=== PATIENT | female | born 1985 | race Caucasian/White ===

== ENCOUNTER 2018-03-25 16:01 | Inpatient (IN) ==
[2018-03-25] MEDS ORDERED: Naloxone 0.4 MG/ML INJ IVP PRN (16:12)
[2018-03-25] MEDS ORDERED: Famotidine 20 MG/2 ML VIAL IVP PRN (16:12)
[2018-03-25] MEDS ORDERED: Metoclopramide 10 MG/2 ML VIAL IVP PRN (16:12)
[2018-03-25] MEDS ORDERED: *HR* Nalbuphine 10 MG/ML AMPUL IVP PRN (16:12)
[2018-03-25] MEDS ORDERED: Penicillin G Potassium 5,000,000 UNIT in 0.9 % Sodium Chloride Mini Bag 100 ML IVPB ONE ×2 (16:12→16:20)
[2018-03-25] MEDS ORDERED: Ondansetron 4 MG/2 ML VIAL IVP PRN (16:12)
[2018-03-25] MEDS ORDERED: Ringers Solution, Lactated 1,000 ML IVC SCH (16:15)
--- NOTE | 2018-03-25 17:46 | OB/GYN History & Physical ---
Date of Encounter: 03/25/18 Time of Encounter: 17:43 Assessment and Plan (1) 39 weeks gestation of Current visit: Yes Status: Acute Admit for IOL GBS positive - PCN prophylaxis Patient may have nubain and or epidural upon request Pitocin per protocol Consider AROM after second dose of PCN Anticipate vaginal delivery POC per consult with Dr Andrews History of Present Illness Chief complaint: Contractions HPI: Ms. Chiu is a 33 year old at 39 weeks 1 day that presents to labor and delivery from the office for induction of labor. She had an elevated blood pressure of 140/90 in the office. She denies headaches, vision changes, epigastric pain, leaking of fluid, and vaginal bleeding. She states positive movement. She denies any complications with this or any previous . Her medical history is significant for drug abuse that includes but is not limited to barbituates, and cocaine. She states she has been clean for about a year. She has not had a positive tox screen this . GBS positive HIV NR RPR neg Rubella positive Varicella positive Blood type O+ Hep B NR Hep C was positive in 2017 Past Med Surg Social Fam HX - Past Medical History Medical history: asthma Psychiatric history: anxiety, depression - Past Surgical History Surgical History: no surgical history - Social History Smoking Status: Current every day smoker Packs per day: 1/2ppd Smokeless Tobacco Status: No Alcohol use: none Drug use: cocaine, opiates, marijuana, IV Drug Use, prescription drug abuse, other - Family History Mother Name: Lucero Hester Age: 62 Hx Family Cardiac Disorders: Yes (history of strokes, HTN) Obstetrical History - Pregnancies : 2 Para: 1 Term: 1 : 0 Ab's: 0 Livin Medications and Allergies Albuterol Sulfate [Proair Hfa] 1 puff IH QID #1 inh 06/20/16 [Rx] Azithromycin [Zithromax] 250 mg PO DAILY #6 tablet 06/20/16 [Rx] Benzonatate [Tessalon] 200 mg PO TID #12 capsule 06/20/16 [Rx] Proair Hfa 06/20/16 [History] predniSONE [PredniSONE] 40 mg PO DAILY #10 tablet 06/20/16 [Rx] Sulfamethoxazole/Trimeth DS [Bactrim DS] 1 each PO BID #14 tablet 12/13/16 [Rx] cephALEXin [Keflex] 500 mg PO TID #21 capsule 12/13/16 [Rx] Fluconazole [Diflucan] 150 mg PO DAILY #1 tab 03/11/17 [Rx] cephALEXin [Keflex] 500 mg PO QID #40 capsule 03/11/17 [Rx] Azithromycin [Azithromycin 6-Tab Pack] 250 mg PO PER PKG DI #6 tab 07/20/17 [Rx] Benzonatate [Tessalon] 200 mg PO TID PRN #30 capsule 07/20/17 [Rx] methylPREDNISolone [Medrol] 4 mg PO TAPER #21 tablet 07/20/17 [Rx] Albuterol Sulfate [Albuterol Inhaler] 2 puff IH Q4HR #1 hfa.aer.ad 08/16/17 [Rx] Pnv Cmb#21/Iron/Folic Acid [ Complete Caplet] 1 each PO QDPC #1 bottle 08/16/17 [Rx] 3 Allergy/AdvReac Type Severity Reaction Status Date / Time No Known Allergies Allergy Verified 08/15/17 21:57 Review of System OB All systems PM: reviewed and no additional remarkable complaints except as stated Exam - Constitutional Constitutional: well developed, well nourished, no acute distress, average body habitus - HEENT HEENT: Normocephaly, Mucus Membranes Moist - Neck Neck exam: full ROM - Lungs Respiratory exam: CTAB - Cardiovascular Cardiovascular exam: RRR, +S1, +S2 - Abdomen Abdomen: Present: bowel sounds normal, gravid, non tender - Extremities Extremities exam: normal capillary refill, normal inspection, radial pulses palpable and symmetrical Deep Tendon Reflex Grade: 2+ Normal - Cervix Dilation: 3 Effacement: 50 Station: -1 - Uterus Uterus exam: Present: normal size, normal contour. Absent: tender Results All other labs normal. - VTE Reasons for not Prescribing Prophylaxis: Treatment not Indicated - Low risk for VTE
[2018-03-25 18:45] LABS: Amphetamine Screen,Urine Negative ng/mL (Cutoff=1000); Barbiturate Screen,Urine Negative ng/mL (Cutoff=200); Benzodiazepines Screen,Urine Negative ng/mL (Cutoff=200); Cannabinoid Screen,Urine Negative ng/mL (Cutoff = 50); Cocaine Screen,Urine Negative ng/mL (Cutoff= 300); Creatinine,Urine 112 mg/dL; Opiate Screen,Urine Negative ng/mL (Cutoff=300); Phencyclidine Screen,Urine Negative ng/mL (Cutoff=25); Protein/Creatinine Ratio,Urine 0.14 mg/mg (0.00-0.20)
[2018-03-25] MEDS ORDERED: Oxytocin 20 units/ LR 1000 mL 20 UNIT/1,000 ML BAG IVC SCH (18:45)
[2018-03-25] MEDS ORDERED: Penicillin G Potassium 2,500,000 UNIT in D5% in Water 100 ML IVPB SCH (20:00)
[2018-03-25 20:13] LABS: Basophils % 0.2 %; Eosinophils # 0.1 K/mcL (0.0-0.6); Eosinophils % 0.8 %; Hematocrit 36.9 % (35.3-44.9); Immature Granulocytes % 0.4 % (0-4); Lymphocytes # 1.6 K/mcL (0.6-4.6); Lymphocytes % 11.9 %; Mean Corpuscular HGB Conc 35.2 g/dL (31.6-35.5); Mean Corpuscular Volume 88.1 fL (83.0-100.0); Mean Platelet Volume 10.6 fL (9.4-12.4); Monocytes # 0.6 K/mcL (0.0-1.3); Monocytes % 4.6 %; Neutrophils # 11.2 K/mcL (1.6-8.9); Platelet Count 199 K/mcL (140-400); Red Blood Count 4.19 M/mcL (3.82-4.97); Red Cell Distribution Width 13.3 % (11.5-14.5); Segmented Neutrophils % 82.1 %
[2018-03-25] MEDS ORDERED: Acetaminophen IV 1,000 MG/100 ML INFUS..BTL IVPB ONE (20:22)
[2018-03-25 20:25] LABS: Alanine Aminotransferase 39 Units/L (7-52); Aspartate Amino Transferase 30 Units/L (13-39); BUN/Creatinine Ratio 15 (6-26); Blood Urea Nitrogen 8 mg/dL (6-20); Lactate Dehydrogenase 116 Units/L (140-271); Uric Acid 4.3 mg/dL (2.3-7.6); eGFR For African Americans > 60 (> 60); eGFR For Non-African Americans > 60 (> 60)
[2018-03-25] MEDS: Penicillin G Potassium 2,500,000 UNIT in 0.9 % Sodium Chloride 100 ML IVPB SCH (22:48)
[2018-03-25] MEDS ORDERED: *HR* FentaNYL (PF) 100 MCG/2 ML VIAL EP ONE (23:28)
[2018-03-25] MEDS ORDERED: Bupivacaine-MPF 0.25% 10 ML VIAL EP ONE (23:28)
[2018-03-25] MEDS ORDERED: Epidural Premix (fent/bupiv) 110 ML EP SCH (23:30)
[2018-03-25] MEDS ORDERED: Lidocaine -MPF 1% 5 ML AMPUL ONE (23:32)
[2018-03-25] MEDS ORDERED: Lidocaine -MPF 2% 5 ML VIAL ONE (23:34)
[2018-03-25] MEDS ORDERED: Epidural Premix (fent/bupiv) 110 ML EP ONE (23:37)
--- NOTE | 2018-03-26 00:12 | Anesthesia Evaluation PreOp ---
Date of Encounter: 03/26/18 Time of Encounter: 23:29 - Past History Planned Operation: FABI Cardiac History: Denies any Significant Hx Pulmonary History: Smoker, Pack/yr (30), Asthma INJURY PREVENTION COORDINATOR History: Denies Any Significant HX Other Medical History: Hepatic (hepatitis C) Anesthesia History: No Prior Anesthetic Complications (denies h/o NA complications; denies family h/o GA complications) : Yes Test: Positive Alcohol Use: none Drug use: cocaine, opiates, marijuana, IV Drug Use, prescription drug abuse, other Medications and Allergies Albuterol Sulfate [Proair Hfa] 1 puff IH QID #1 inh 06/20/16 [Rx] Azithromycin [Zithromax] 250 mg PO DAILY #6 tablet 06/20/16 [Rx] Benzonatate [Tessalon] 200 mg PO TID #12 capsule 06/20/16 [Rx] Proair Hfa 06/20/16 [History] predniSONE [PredniSONE] 40 mg PO DAILY #10 tablet 06/20/16 [Rx] Sulfamethoxazole/Trimeth DS [Bactrim DS] 1 each PO BID #14 tablet 12/13/16 [Rx] cephALEXin [Keflex] 500 mg PO TID #21 capsule 12/13/16 [Rx] Fluconazole [Diflucan] 150 mg PO DAILY #1 tab 03/11/17 [Rx] cephALEXin [Keflex] 500 mg PO QID #40 capsule 03/11/17 [Rx] Azithromycin [Azithromycin 6-Tab Pack] 250 mg PO PER PKG DI #6 tab 07/20/17 [Rx] Benzonatate [Tessalon] 200 mg PO TID PRN #30 capsule 07/20/17 [Rx] methylPREDNISolone [Medrol] 4 mg PO TAPER #21 tablet 07/20/17 [Rx] Albuterol Sulfate [Albuterol Inhaler] 2 puff IH Q4HR #1 hfa.aer.ad 08/16/17 [Rx] Pnv Cmb#21/Iron/Folic Acid [ Complete Caplet] 1 each PO QDPC #1 bottle 08/16/17 [Rx] 3 Allergy/AdvReac Type Severity Reaction Status Date / Time No Known Allergies Allergy Verified 08/15/17 21:57 - Meds/Allergy Pre-op Review Medications Reviewed: Yes Allergies Reviewed: Yes Beta Blockers on Current Med List: No Anesthesia Results - Labs 03/25/18 19:10 03/25/18 19:10 Anesthesia Exam O2 Sat Height 1.7 m Weight 79 kg NPO (# of Hours): solids > 8hrs Pain Scale: 5 Pain Scale Used: Wendy (Faces) - HEENT Pupil (Motor): Pupils equal Mallampati: II Teeth: Normal Oral Opening: Greater than 3 - INJURY PREVENTION COORDINATOR LOC: Oriented INJURY PREVENTION COORDINATOR Motor: Normal RUE, Normal LUE, Normal RLE, Normal LLE, Normal Face INJURY PREVENTION COORDINATOR Sensory: Normal: RUE, LUE, RLE, LLE, Face - Cardiac Rhythm: Regular Murmur: None - Pulmonary Breath Sounds: bilateral Clear Respiratory Effort: Symmetrical Anesthesia Assess/Plan ASA Score: 2 Modified [place] Scale for Level of Consciousness: Anixous, agitated or restless Anesthetic Plan: Regional Autologous Blood: No Monitoring Plan: Standard Monitors Recovery Plan: Other
--- NOTE | 2018-03-26 00:14 | Anesthesia Procedures ---
Date of Encounter: 03/26/18 Time of Encounter: 00:12 Procedures: Anesthesia - Epidural/Spinal Patient ID/Chart reviewed: Yes Patient examined: Yes OB Eval: Gestational age: 39 weeks 1 day OB Eval: : 2 OB Eval: Hx Para: 1 OB Eval: Dilated at (cm): 4 OB Eval: Contractions: Non-stressed pattern Consent Obtained: Yes Supplemental Oxygen: None/Room Air Site Prep: Aseptic Technique, Sterile prep and drape, Povidone-Iodine 1% Patient position: upright Local Anesthetic: Lidocaine 1% Amount of Local Anesthetic used: 3 Touhy Needle Gauge: 18 Touhy Needle Depth (cm): 5 Catheter Depth at Skin (cm): 10 Test Dose (1.5% Lido + Epi): Volume given (mls): 5 Test Dose Result: Negative Loading Dose: 0.25% Marcaine (mls): 5 Loading Dose: Fentanyl (mcg): 100 Loading Dose Administered: Thru Catheter Infusion Med: 0.125% Bupivacaine w/ 2 mcg/ml Fentanyl Infusion Rate (mls/hr): 14 (w/ demand bolus of 5mL PRN) Catheter Secured in Place: Tegaderm, Tape Interspace Used: L4-L5 Loss of Resistance (ERIK): Yes Blood: No CSF: No Paresthesia: No Procedure: successful on 1st attempt; patient tolerated procedure well; VSS
[2018-03-26] MEDS: Penicillin G Potassium 2,500,000 UNIT in 0.9 % Sodium Chloride 100 ML IVPB SCH (03:29)
--- NOTE | 2018-03-26 07:17 | OB/GYN Procedure Note ---
Delivery - Delivery Date: 03/26/18 Provider: Vic Andrews Intrapartum events: none Delivery induction: oxytocin Delivery monitor: external FHT, external uterine Anesthesia: epidural Quantitated Blood Loss: 50 - (s) Infant A Delivery Date: 03/26/18 Infant Delivery Time: 06:50 Presentation: vertex Position: OA Route of delivery: Gender: Male Viability: Viable Pounds: 7 Ounces: 7 at 1 minute: 8 at 5 mins: 9 Shoulder Dystocia: not encountered Specimens collected: cord blood Placenta: spontaneous - Repair Episiotomy: none Laceration Description: None - Complications Delivery complications: none - Disposition Mom disposition: stable in LDR disposition: stable in LDR - Comments Comments: Patient progressed to complete and on the perineum under epidural anesthesia . She delivered a live male weighing 7 lbs. 7 oz. 3356 g at 0 650. Placenta delivered at 0 656. Asthma blood loss was 50 mL. No lacerations or episiotomy were encountered.
[2018-03-26] MEDS ORDERED: Acetaminophen 325 MG TABLET PO PRN (09:23)
[2018-03-26] MEDS ORDERED: Prenatal Vit/FA 1 EACH TABLET PO SCH (09:23)
[2018-03-26] MEDS ORDERED: ALBUTEROL SULFATE IH SCH (09:23)
[2018-03-26] MEDS ORDERED: Oxytocin 20 units/ LR 1000 mL 20 UNIT/1,000 ML BAG IVC SCH (09:23)
[2018-03-26] MEDS ORDERED: Measles/Mumps/Rubella Vacc 0.5 ML VIAL SQ PRN (09:23)
[2018-03-26] MEDS ORDERED: Rho Immune Globulin 1,500 UNIT SYRINGE IM PRN (09:23)
[2018-03-26] MEDS: Ibuprofen 600 MG TABLET PO PRN ×2 (11:14→19:10)
[2018-03-27] MEDS: Ibuprofen 600 MG TABLET PO PRN ×2 (01:57→08:06)
[2018-03-27 06:57] LABS: Basophils % 0.2 %; Eosinophils # 0.2 K/mcL (0.0-0.6); Eosinophils % 1.3 %; Hematocrit 34.3 % (35.3-44.9); Hemoglobin 11.7 g/dL (11.5-15.4); Immature Granulocytes % 0.5 % (0-4); Lymphocytes # 2.4 K/mcL (0.6-4.6); Lymphocytes % 15.7 %; Mean Corpuscular HGB Conc 34.1 g/dL (31.6-35.5); Mean Corpuscular Hemoglobin 30.1 pg (28.0-33.3); Mean Corpuscular Volume 88.2 fL (83.0-100.0); Mean Platelet Volume 10.6 fL (9.4-12.4); Monocytes % 6.6 %; Neutrophils # 11.3 K/mcL (1.6-8.9); Platelet Count 183 K/mcL (140-400); Red Blood Count 3.89 M/mcL (3.82-4.97); Red Cell Distribution Width 13.5 % (11.5-14.5); Segmented Neutrophils % 75.7 %
--- NOTE | 2018-03-27 08:15 | Discharge Summary ---
Date of Encounter: 03/27/18 Time of Encounter: 08:13 - Discharge Diagnosis (1) Status post vaginal delivery Priority: Primary Status: Acute Comments: Continue routine care discharge home today follow up with Dr. Andrews in 4-6 weeks - Discharge Medications Prescriptions: Ibuprofen [Motrin] 600 mg PO Q6HR PRN #60 tablet PRN Reason: Moderate Pain Home Medications: Albuterol Sulfate [Albuterol Inhaler] 2 puff IH Q4HR #1 hfa.aer.ad 08/16/17 [Rx] Pnv Cmb#21/Iron/Folic Acid [ Complete Caplet] 1 each PO QDPC #1 bottle 08/16/17 [Rx] Ibuprofen [Motrin] 600 mg PO Q6HR PRN #60 tablet 03/27/18 [Rx] Allergies/Adverse Reactions: 3 Allergy/AdvReac Type Severity Reaction Status Date / Time No Known Allergies Allergy Verified 08/15/17 21:57 Data Procedures and tests throughout hospitalization: Laboratory Tests 03/25/18 03/25/18 03/25/18 18:00 19:10 19:10 WBC 13.6 H RBC 4.19 Hgb 13.0 Hct 36.9 MCV 88.1 MCH 31.0 MCHC 35.2 RDW 13.3 Plt Count 199 MPV 10.6 Immature Gran % 0.4 Seg Neutrophils % 82.1 Lymphocytes % 11.9 Monocytes % 4.6 Eosinophils % 0.8 Basophils % 0.2 Neutrophils # 11.2 H Lymphocytes # 1.6 Monocytes # 0.6 Eosinophils # 0.1 Basophils # 0.0 BUN 8 Creatinine 0.54 L Est GFR ( Amer) > 60 Est GFR (Non-Af Amer) > 60 BUN/Creatinine Ratio 15 Uric Acid 4.3 AST 30 ALT 39 Lactate Dehydrogenase 116 L Urine Creatinine 112 Protein/Creatinin Ratio 0.14 Urine Total Protein 16 H Urine Opiates Screen Negative Ur Barbiturates Screen Negative Ur Phencyclidine Scrn Negative Ur Amphetamines Screen Negative U Benzodiazepines Scrn Negative Urine Cocaine Screen Negative U Marijuana (THC) Screen Negative Ur Drug Screen Interp See Below Specimen Rejected 03/25/18 03/27/18 19:11 06:38 WBC 14.9 H RBC 3.89 Hgb 11.7 Hct 34.3 L MCV 88.2 MCH 30.1 MCHC 34.1 RDW 13.5 Plt Count 183 MPV 10.6 Immature Gran % 0.5 Seg Neutrophils % 75.7 Lymphocytes % 15.7 Monocytes % 6.6 Eosinophils % 1.3 Basophils % 0.2 Neutrophils # 11.3 H Lymphocytes # 2.4 Monocytes # 1.0 Eosinophils # 0.2 Basophils # 0.0 BUN Creatinine Est GFR ( Amer) Est GFR (Non-Af Amer) BUN/Creatinine Ratio Uric Acid AST ALT Lactate Dehydrogenase Urine Creatinine Protein/Creatinin Ratio Urine Total Protein Urine Opiates Screen Ur Barbiturates Screen Ur Phencyclidine Scrn Ur Amphetamines Screen U Benzodiazepines Scrn Urine Cocaine Screen U Marijuana (THC) Screen Ur Drug Screen Interp Specimen Rejected Hemolyzed Labs on day of discharge: Labs from last 24 hours 03/27/18 06:38 WBC 14.9 H RBC 3.89 Hgb 11.7 Hct 34.3 L MCV 88.2 MCH 30.1 MCHC 34.1 RDW 13.5 Plt Count 183 MPV 10.6 Immature Gran % 0.5 Seg Neutrophils % 75.7 Lymphocytes % 15.7 Monocytes % 6.6 Eosinophils % 1.3 Basophils % 0.2 Neutrophils # 11.3 H Lymphocytes # 2.4 Monocytes # 1.0 Eosinophils # 0.2 Basophils # 0.0 Date of admission: 03/25/18 16:01 Primary care physician: Frankie Douglas Jr, MD Consults: 03/26/18 09:23 Consult to [employer] [CONS] Routine Comment: Vaginal delivery, consult needed Consult to [employer] [CONS] Routine Reason for SW Consult: history of opiate use Discharging clinician: Sarah Lui Anticipated date of discharge: 03/27/18 - Patient Status Disposition: Home, Self-Care Condition: Good Functional capacity at discharge: independent ambulation - Discharge Instructions Follow Up With: Frankie Douglas Jr, MD [Primary Care Provider] - Vic Andrews MD [Partnered Physician] - - Diet and Activity Activity: increase activity as tolerated Diet: regular diet Hospital Course Delivery: Episiotomy: none Laceration: none Other procedures: none complications: none Discharge diagnosis: IUP at term delivered baby: male (bottle feeding) Time Attestation: Total time spent providing and/or coordinating discharge services: Time Spent: Less than 30 minutes Exam - Constitutional Vitals: Temp Pulse Resp BP Pulse Ox 98.4 F 83 12 120/85 97 03/27/18 07:49 03/27/18 07:49 03/27/18 07:49 03/27/18 07:49 03/27/18 07:49 General appearance IM: A&O X 3, pleasant, answers questions appropriately - Respiratory Respiratory exam: Present: CTAB - Cardiovascular Cardiovascular exam IM: Present: RRR, +S1, +S2 - GI/Abdominal GI/Abdominal exam IM: normal bowel sounds - Uterine Tone: Firm Uterus Position: 1 Finger Below Umbilicus, Midline - Extremities Exam Extremities exam IM: Present: full ROM, normal capillary refill, normal inspection - Neurological Exam Neurological exam: alert, oriented X3, reflexes normal
[2018-03-27 12:18] VITALS: BP 130/78
== END 2018-03-27 13:24 | disposition home or self-care (01) | DRG 560 ==
LOC: 1NENULAB 16:01 → 1NENUOBS 03-26 09:22
PROVIDERS: ADMIT Obstetrics & Gynecology; ATTEND Obstetrics & Gynecology